=== PATIENT | male | born 1990 | race Caucasian/White ===

== ENCOUNTER 2023-04-26 14:00 | Outpatient (RCR) | payer OTHER, SELFPAY | END 2023-08-07 09:58 | disposition home or self-care (01) | LOC: HO.OT 14:00 | PROVIDERS: PCP Internal Medicine Cardiovascular Disease; Visit Provider Internal Medicine Cardiovascular Disease | DX: I89.0 Lymphedema, not elsewhere classified (principal) | CPT/HCPCS: 97140; 97167 ==